=== PATIENT | male | born 1980 | race African-American/Black ===

== ENCOUNTER 2020-04-23 17:55 | Emergency (ER) | payer SELFPAY ==
[~2020-04-23] VITALS: Ht 188 cm; Wt 101.0 kg
[2020-04-23 18:04] VITALS: BP 150/80
== END 2020-04-23 19:02 | disposition left against medical advice (07) ==
LOC: ER 17:55
DX: Z53.21 Procedure and treatment not carried out due to patient leaving prior to being seen by health care provider (principal)